=== PATIENT | male | born 2000 | race Hispanic/Latino ===

== ENCOUNTER → 2018-03-23 | Outpatient (CLI) | payer OTHER ==
[~2018-03-23] MED LIST: PROHANCE 279.3MG/ML 15ML VIAL (A9576) As Ordered
== END ==
LOC: M RAD 14:44
DX: M25.571 Pain in right ankle and joints of right foot (principal)
CPT/HCPCS: A9576

== ENCOUNTER → 2019-01-16 | Outpatient (CLI) | payer OTHER ==
[2019-01-16 17:29] LABS: ALBUMIN 4.7 GM/DL (3.2-5.2); ALT/SGPT 18 U/L (12-78); BILIRUBIN,TOTAL 0.5 MG/DL (0.2-1.0); BLOOD UREA NITROGEN 15 MG/DL (7-18); CALCIUM LEVEL 9.9 MG/DL (8.5-10.1); CARBON DIOXIDE LEVEL 29 MEQ/L (21-32); CHLORIDE LEVEL 106 MEQ/L (98-107); CREATININE FOR GFR 1.14 MG/DL (0.70-1.30); GLUCOSE, FASTING 103 MG/DL (70-100); POTASSIUM SERUM 4.8 MEQ/L (3.5-5.1); SODIUM LEVEL 138 MEQ/L (136-145); TOTAL PROTEIN 8.1 GM/DL (6.4-8.2)
[2019-01-16 17:35] LABS: BASO % 0.5 % (0.0-1.0); EOS % 0.5 % (0.0-3.0); HEMATOCRIT 52.3 % (42.0-52.0); HEMOGLOBIN 17.5 g/dl (13.5-17.5); LYMPH # 0.9 10^3/uL (1.5-6.5); LYMPH % 11.4 % (24.0-44.0); MEAN CORPUSCULAR HEMOGLOBIN 29.3 pg (27.0-33.0); MEAN CORPUSCULAR HGB CONC 33.5 g/dl (32.0-36.5); MEAN CORPUSCULAR VOLUME 87.6 fl (80.0-96.0); MONO # 0.2 10^3/uL (0.0-0.8); MONO % 2.1 % (0.0-5.0); NEUTROPHILS # 6.4 10^3/uL (1.8-7.7); NEUTROPHILS % 85.2 % (36.0-66.0); PLATELET COUNT, AUTOMATED 211 10^3/uL (150-450); RED BLOOD COUNT 5.97 10^6/uL (4.30-6.10); WHITE BLOOD COUNT 7.6 10^3/uL (4.0-10.0)
== END ==
LOC: M WUC 14:43
DX: M76.71 Peroneal tendinitis, right leg (principal); S93.491D Sprain of other ligament of right ankle, subsequent encounter; Q66.7 Congenital pes cavus; M76.61 Achilles tendinitis, right leg; M25.571 Pain in right ankle and joints of right foot

== ENCOUNTER → 2020-04-25 | Outpatient (CLI) | payer OTHER ==
--- NOTE | 2020-04-29 10:56 | ECHO ---
DATE OF PROCEDURE: 04/25/2020 Age: 19 Gender: Male Height: 66 inches Weight: 130 pounds REFERRING PHYSICIAN: Jose Martin Crump MD INDICATION: Palpitations. MEASUREMENTS: 2D Measurements: Left atrium 2.6 cm Interventricular septum 1.06 cm Posterior wall 1.07 cm Left ventricle diastole 3.3 cm Aortic root 2.4 cm Inferior vena cava 1.6 cm (more than 50% respiratory variation) Doppler Measurements: No aortic stenosis No aortic regurgitation No mitral stenosis No mitral regurgitation No tricuspid regurgitation No pulmonic regurgitation Aortic valve velocity 103 cm/s LVOT velocity 86.5 cm/s Mitral E velocity 80.8 cm/s Mitral A velocity 32.1 cm/s Mitral deceleration time 190 m/s Pulmonary artery systolic pressure 14 mmHg MITRAL ANNULAR TISSUE DOPPLER E prime septal 13.0 cm/s, E prime lateral 14.8 cm/s DESCRIPTION: Rhythm was sinus. Image quality was fair. This was a 2D, M-mode, color flow Doppler, and pulsed wave Doppler examination including mitral annular tissue Doppler. No pericardial effusion. CONCLUSIONS: 1. Normal echocardiogram Doppler. 2. Normal left ventricle internal dimensions and wall thickness. Normal regional left ventricle wall motion and wall thickening. Normal left ventricular (LV) systolic function. Left ventricular ejection fraction (LVEF) 60% to 65% by visual estimate. Supra-normal left ventricular (LV) diastolic function. MTDD
== END ==
LOC: M CARPUL 10:44
PROVIDERS: ATTEND Internal Medicine
DX: Z00.00 Encounter for general adult medical examination without abnormal findings (principal)